=== PATIENT | female | born 1990 | race American Indian/Alaskan Native ===

== ENCOUNTER 2017-03-24 16:05 | Inpatient (IN) | payer OTHER ==
[~2017-03-24] VITALS: Ht 152.4 cm; Wt 54.9 kg
[2017-03-25] MEDS ORDERED: PRENATAL TABLE1 EACH PO (13:58)
== END 2017-03-26 16:01 | disposition home or self-care (01) | DRG 778 ==
LOC: OBS/DEL 16:05 → LDR 03-25 13:05
PROC: 4A1HXCZ Monitoring of Products of Conception, Cardiac Rate, External Approach (ICD-10-PCS; principal; 2017-03-25)
DX: O60.03 Preterm labor without delivery, third trimester (principal); O23.43 Unspecified infection of urinary tract in pregnancy, third trimester; Z3A.35 35 weeks gestation of pregnancy

== ENCOUNTER 2017-04-18 15:14 | Inpatient (IN) | payer OTHER ==
[~2017-04-18] VITALS: Ht 152.4 cm; Wt 56.2 kg
[~2017-04-18 15:14] MED LIST: PRENATAL TABLE1 EACH PO
== END 2017-04-21 15:26 | disposition home or self-care (01) | DRG 775 ==
LOC: OBS/DEL 15:14 → LDR 16:15 → SURG-SUITE 16:15 → OBS/DEL 16:15 → LDR 04-19 01:18 → OB/GYN 04-19 14:31 → SURG-SUITE 04-19 15:10
PROC: 4A1HXCZ Monitoring of Products of Conception, Cardiac Rate, External Approach (ICD-10-PCS; 2017-04-18)
PROC: BY4FZZZ Ultrasonography of Third Trimester, Single Fetus (ICD-10-PCS; 2017-04-18)
PROC: 10E0XZZ Delivery of Products of Conception, External Approach (ICD-10-PCS; principal; 2017-04-19)
DX: O69.81X0 Labor and delivery complicated by cord around neck, without compression, not applicable or unspecified (principal); Z3A.38 38 weeks gestation of pregnancy; Z37.0 Single live birth

== ENCOUNTER 2018-07-13 23:43 | Emergency (ER) | payer OTHER ==
[~2018-07-13] VITALS: Ht 160 cm; Wt 45.4 kg
== END 2018-07-14 13:09 | disposition home or self-care (01) ==
LOC: ER 23:43
DX: O20.0 Threatened abortion (principal)

== ENCOUNTER 2018-07-19 12:40 | Emergency (ER) | payer OTHER ==
[~2018-07-19] VITALS: Ht 157.5 cm; Wt 52.2 kg
== END 2018-07-20 12:18 | disposition home or self-care (01) ==
LOC: ER 12:40
DX: O03.9 Complete or unspecified spontaneous abortion without complication (principal)

== ENCOUNTER 2019-09-08 01:58 | Emergency (ER) | payer OTHER | END 2019-09-08 06:34 | disposition home or self-care (01) | LOC: ER 01:58 | DX: O03.89 Complete or unspecified spontaneous abortion with other complications (principal) ==

== ENCOUNTER 2021-01-30 20:58 | Emergency (ER) | payer OTHER ==
[~2021-01-30] VITALS: Ht 152.4 cm; Wt 53.5 kg
[~2021-01-30 20:58] MED LIST changes: +CELEBREX100 MG PO; +PANADOL
[2021-01-30] MEDS ORDERED: PRENATAL + DHA1 EAC1 (21:21)
== END 2021-01-30 23:24 | disposition home or self-care (01) ==
LOC: ER 20:58
DX: R11.10 Vomiting, unspecified (principal); O21.8 Other vomiting complicating pregnancy; Z3A.17 17 weeks gestation of pregnancy

== ENCOUNTER 2021-04-09 21:12 | Inpatient (IN) | payer OTHER ==
[~2021-04-09] VITALS: Ht 152.4 cm; Wt 53.5 kg
[~2021-04-09 21:12] MED LIST changes: +PRENATAL + DHA1 EAC1
== END 2021-04-11 13:36 | disposition home or self-care (01) | DRG 833 ==
LOC: OBS/DEL 21:12 → LDR 04-10 11:17 → OBS/DEL 04-10 11:17 → LDR 04-11 13:36
PROVIDERS: ADMIT Obstetrics & Gynecology Obstetrics; ATTEND Obstetrics & Gynecology Obstetrics
PROC: BY4FZZZ Ultrasonography of Third Trimester, Single Fetus (ICD-10-PCS; 2021-04-09)
PROC: 4A1HXCZ Monitoring of Products of Conception, Cardiac Rate, External Approach (ICD-10-PCS; principal; 2021-04-10)
DX: O42.912 Preterm premature rupture of membranes, unspecified as to length of time between rupture and onset of labor, second trimester (principal); Z3A.25 25 weeks gestation of pregnancy; Z20.822 Contact with and (suspected) exposure to COVID-19

== ENCOUNTER 2021-06-25 18:37 | Inpatient (IN) | payer OTHER ==
[~2021-06-25] VITALS: Ht 152.4 cm; Wt 56.2 kg
== END 2021-06-29 12:50 | disposition home or self-care (01) | DRG 788 ==
LOC: LDR 18:37 → SURG 06-26 21:22 → OB/GYN 06-26 21:48
PROVIDERS: ADMIT Obstetrics & Gynecology Obstetrics; ATTEND Obstetrics & Gynecology Obstetrics
PROC: 4A1HXCZ Monitoring of Products of Conception, Cardiac Rate, External Approach (ICD-10-PCS; 2021-06-25)
PROC: 10D00Z1 Extraction of Products of Conception, Low, Open Approach (ICD-10-PCS; principal; 2021-06-26 18:15)
DX: O36.8130 Decreased fetal movements, third trimester, not applicable or unspecified (principal); O62.0 Primary inadequate contractions; Z3A.37 37 weeks gestation of pregnancy; Z37.0 Single live birth; Z20.822 Contact with and (suspected) exposure to COVID-19